=== PATIENT | male | born 1945 | race Caucasian/White ===

== ENCOUNTER 2017-12-20 22:01 | Emergency (ER) | payer OTHER ==
[~2017-12-20] VITALS: Ht 172.7 cm; Wt 78.0 kg
[~2017-12-20 22:01] MED LIST: ASPI81TA21 PO; GABA400C PO; HYDRTAB32 PO; HYT/2 PO; IPRA17AE2 INH; LEVO-366 PO; LISI-729 PO; LORA-741 PO; LSX20 PO; METO-551 PO; NITR0.4D TD; OXGN; SIMV40TA4 PO; SPIR25TA89 PO; SPRIN/30 INH; SYMIN160 INH; VNTHFA/IN INH
[2017-12-20 22:27] VITALS: TEMP 36.5; Ht 172.7 cm; Wt 78.0 kg
[2017-12-20] MEDS ORDERED: SODIUM CHLORIDE 0.9% 1000ML 1,000 ML IV STA (23:44)
[2017-12-20] MEDS ORDERED: ALBUT/IPRATROP 3MG/0.5MG NEB 3 ML VIAL INH STA (23:48)
[2017-12-20 23:57] LABS: BASO % 0.3 %; BASO ABS # 0.03 K/uL (0-0.2); EOS % 1.3 %; EOS ABS # 0.11 K/uL (0-0.5); HEMATOCRIT 32.4 % (42-52); HEMOGLOBIN 10.6 g/dL (14.0-18.0); IG# 0.01 K/uL (0.00-0.02); LYMPH % 15.5 %; LYMPH ABS # 1.36 K/uL (1.2-3.4); MEAN CELL VOLUME 90.8 fL (80-100); MEAN CORPUSCULAR HEMOGLOBIN 29.7 pg (25-34); MEAN CORPUSCULAR HGB CONC 32.7 g/dl (32-36); MEAN PLATELET VOLUME 9.6 fL (7.4-10.4); MONO % 7.4 %; MONO ABS # 0.65 K/uL (0.11-0.59); NEUT % 75.4 %; NEUT ABS # 6.62 K/uL (1.4-6.5); PLATELET COUNT 208 K/uL (130-400); RED CELL DISTRIBUTION WIDTH CV 14.3 % (11.5-14.5); RED CELL DISTRIBUTION WIDTH SD 47.5 fL (36.4-46.3); WHITE BLOOD COUNT 8.78 K/uL (4.8-10.8)
[2017-12-21 00:22] LABS: ALBUMIN 3.5 gm/dl (3.4-5.0); CALCIUM 8.8 mg/dl (8.5-10.1); CREATININE 0.78 mg/dl (0.60-1.40); POTASSIUM 3.4 mmol/L (3.5-5.1)
[2017-12-21] MEDS ORDERED: CANNABIS PO (00:36)
[2017-12-21] MEDS ORDERED: CYAN10005 PO (00:36)
[2017-12-21] MEDS ORDERED: VITA1TAB4 PO (00:36)
[2017-12-21] MEDS ORDERED: CHOL1000 PO (00:36)
[2017-12-21] MEDS ORDERED: LSN5 PO (00:36)
[2017-12-21] MEDS ORDERED: FNTTP50 TD (00:36)
[2017-12-21] MEDS ORDERED: SPIR25TA PO (00:36)
[2017-12-21] MEDS ORDERED: ATEN50TA8 PO (00:36)
[2017-12-21] MEDS ORDERED: CLOP1TAB15 PO (00:36)
[2017-12-21] MEDS ORDERED: BUME1TAB PO (00:36)
[2017-12-21 01:21] LABS: INFLUENZA A PCR Neg for Influ A (NEG); INFLUENZA B PCR Neg for Influ B (NEG)
--- NOTE | 2017-12-21 01:47 | EMERGENCY ROOM VISIT NOTE ---
History Report prepared by Randolph: Angy Gabriel Under the Supervision of: Dr. Judith Sullivan M.D. First contact with patient: 23:11 Chief Complaint: UNABLE TO VOID Stated Complaint: CHEST PAIN Nursing Triage Summary: Pt arrives ALS with complaints of unable to void. Reported that pt has had periods of confusion. Pt with moist productive cough yellow/brown sputum. Bladder scanned for >401 History of Present Illness The patient is a 72 year old male who presents to the Emergency Room with complaints of an episode of not being able to void starting this evening. Per nursing staff, the patient's bladder scan showed 450ml, but after the Corcoran was placed he is currently at 700. She states that she could not get it through at first because there was something right inside the meatus that was blocking it. The patient states that this has never happened before. The patient complains of intermittent diaphoresis, abdominal pain, and confusion. The patient's daughter reports that he thought people were in the house yesterday when no one was. She states that it seemed similar to when he was septic five years ago. The patient denies a fever, ever having a kidney stone, diabetes, and being a smoker. The daughter notes a history of COPD, diverticulitis, trigeminal myalgia , and being exposed to Agent [place] in [place]. The patient notes he is usually on 3 L at all times and uses a Fentanyl patch for his myalgia. Source of History: patient, family Onset: this evening Position: other (global) Quality: other (full) Timing: other (episode) Associated Symptoms: + diaphoresis, + abdominal pain, No fevers Note: The patient complains of confusion. Review of Systems See HPI for pertinent positives & negatives. A total of 10 systems reviewed and were otherwise negative. Past Medical & Surgical Medical Problems: (1) Anxiety (2) Asthma (3) Benign hypertension (4) Chronic obstructive lung disease (5) Diverticulitis (6) H/O agent [place] exposure (7) Hyperlipidemia (8) Myalgia (9) Osteoarthritis (10) peripheral neuropathy (11) Pneumonia (12) Sepsis Family History Patient reports no known family medical history. Social History Smoking Status: Former Smoker Marital Status: Housing Status: lives with family Occupation Status: retired Current/Historical Medications Scheduled Albuterol Hfa (Ventolin Hfa), 2 PUFFS INH 5 TIMES DAILY PRN Aspirin Enteric Coated (Ecotrin Or Generic), 81 MG PO DAILY Atenolol (Tenormin), 50 MG PO DAILY Budesonide/Formoterol Fumarate (Symbicort 160/4.5 Inhaler), 2 PUFFS INH BID Bumetanide (Bumex), 0.5 MG PO BID Cefdinir (Omnicef), 300 MG PO Q12H Cholecalciferol (Vitamin D3), 1 CAP PO DAILY Clopidogrel (Plavix), 75 MG PO DAILY Cyanocobalamin (Vitamin B-12), 1 TAB PO DAILY Fentanyl (Duragesic), 50 MCG TD [id number] Home O2 Therapy (Oxygen), 3 LITERS NA CONTINUOUS Lisinopril (Lisinopril), 5 MG PO QAM Metoprolol Tartrate (Lopressor), 50 MG PO QAM Metoprolol Tartrate (Lopressor), 25 MG PO QPM Simvastatin (Zocor), 20 MG PO QPM Spironolactone (Aldactone), 12.5 MG PO QAM Terazosin Hcl (Hytrin), 4 MG PO HS Tiotropium [place] (Spiriva Handihaler), 1 CAP INH DAILY Vitamin E (Vitamin E), 1 CAP PO DAILY [Cannabis Xl], 1 CAP PO DAILY Scheduled PRN Lorazepam (Ativan), 0.5 TABLET PO BID PRN PRN for ANXIETY/NERVES Allergies Coded Allergies: Amitriptyline (Verified Allergy, Unknown, "LETHAGIC", 12/21/17) Physical Exam Vital Signs Date Time Temp Pulse Resp B/P (MAP) Pulse Ox O2 Delivery O2 Flow Rate FiO2 12/21/17 03:55 78 18 138/79 97 12/21/17 02:21 77 18 167/75 97 Room Air 12/21/17 02:14 73 12/21/17 00:08 77 18 150/98 98 Room Air 12/20/17 22:37 Nasal Cannula 3.0 12/20/17 22:27 36.5 72 23 158/96 99 Nasal Cannula 3.0 12/20/17 22:16 67 Physical Exam Vital signs reviewed. General: Chronically ill-appearing, elderly, in no significant distress. On nasal canula at [address]. Cor[address] catheter in place with about 700 mls of dark clear urine. HEENT: No scleral icterus, PERRLA, neck supple. Atraumatic. Cardiovascular: Regular rate and rhythm, no extra sounds. Pulmonary: Coarse breath sounds bilaterally, right greater than left, normal work of breathing. Abdomen: Soft, mid-lower abdomen tenderness, no rebound, no guarding, nondistended, positive bowel sounds. Musculoskeletal: Atraumatic, no peripheral edema. Neurologic: Patient awake alert and oriented x 3, full strength in all 4 extremities. Cranial nerves 2 through 12 grossly intact. Skin: Warm, dry, no rash Medical Decision & Procedures ER Provider Diagnostic Interpretation: Radiology results as stated below per my review and radiologist interpretation: CT ABDOMEN & PELVIS Without Contrast: Moderate amount of thickening with mucous stasis and partial consolidation within the left lower lobe suggesting inflammatory or infectious process. Liver, gallbladder, spleen, pancreas, and adrenal glands are unremarkable. Non-obstructing calculus within the left kidney. Otherwise, kidneys and ureters are unremarkable. Urinary bladder is decompressed with Corcoran catheter present. Appendix is unremarkable. Noninflamed colonic diverticulitis. No acute osseous abnormality. Radiologist: Hilario Pacheco MD Study ready at 01:45 and initial results transmitted at 02:53. CHEST X-RAY: The results are interpreted by me. Chronic interstitial changes prominent right perihilum. Scarring in the right upper lung field. Interstitial prominence to the left lower lung field. Laboratory Results 12/20/17 23:45 Red Blood Count 3.57, Mean Corpuscular Volume 90.8, Mean Corpuscular Hemoglobin 29.7, Mean Corpuscular Hemoglobin Concent 32.7, Mean Platelet Volume 9.6, Neutrophils (%) (Auto) 75.4, Lymphocytes (%) (Auto) 15.5, Monocytes (%) (Auto) 7.4, Eosinophils (%) (Auto) 1.3, Basophils (%) (Auto) 0.3, Neutrophils # (Auto) 6.62, Lymphocytes # (Auto) 1.36, Monocytes # (Auto) 0.65, Eosinophils # (Auto) 0.11, Basophils # (Auto) 0.03 12/20/17 23:45 Test 12/20/17 22:03 12/20/17 23:30 12/20/17 23:45 12/20/17 23:48 Lab Scanned Report Laboratory Report/Additional Urine Color YELLOW Urine Appearance CLEAR (CLEAR) Urine pH 6.5 (4.5-7.5) Urine Specific [place] 1.016 (1.000-1.030) Urine Protein NEG (NEG) Urine Glucose (UA) NEG (NEG) Urine Ketones TRACE (NEG) Urine Occult Blood TRACE (NEG) Urine Nitrite NEG (NEG) Urine Bilirubin NEG (NEG) Urine Urobilinogen NEG (NEG) Urine Leukocyte Esterase NEG (NEG) Urine WBC (Auto) 1-5 /hpf (0-5) Urine RBC (Auto) 10-30 /hpf (0-4) Urine Hyaline Casts (Auto) 0 /lpf (0-5) Urine Epithelial Cells (Auto) 5-10 /lpf (0-5) Urine Bacteria (Auto) NEG (NEG) White Blood Count 8.78 K/uL (4.8-10.8) Red Blood Count 3.57 M/uL (4.7-6.1) Hemoglobin 10.6 g/dL (14.0-18.0) Hematocrit 32.4 % (42-52) Mean Corpuscular Volume 90.8 fL (80-100) Mean Corpuscular Hemoglobin 29.7 pg (25-34) Mean Corpuscular Hemoglobin Concent 32.7 g/dl (32-36) Platelet Count 208 K/uL (130-400) Mean Platelet Volume 9.6 fL (7.4-10.4) Neutrophils (%) (Auto) 75.4 % Lymphocytes (%) (Auto) 15.5 % Monocytes (%) (Auto) 7.4 % Eosinophils (%) (Auto) 1.3 % Basophils (%) (Auto) 0.3 % Neutrophils # (Auto) 6.62 K/uL (1.4-6.5) Lymphocytes # (Auto) 1.36 K/uL (1.2-3.4) Monocytes # (Auto) 0.65 K/uL (0.11-0.59) Eosinophils # (Auto) 0.11 K/uL (0-0.5) Basophils # (Auto) 0.03 K/uL (0-0.2) RDW Standard Deviation 47.5 fL (36.4-46.3) RDW Coefficient of Variation 14.3 % (11.5-14.5) Immature Granulocyte % (Auto) 0.1 % Immature Granulocyte # (Auto) 0.01 K/uL (0.00-0.02) Anion Gap 8.0 mmol/L (3-11) Est Creatinine Clear Calc Drug Dose 80.4 ml/min Estimated GFR () 103.1 Estimated GFR (Non- 88.9 BUN/Creatinine Ratio 7.8 (10-20) Calcium Level 8.8 mg/dl (8.5-10.1) Magnesium Level 1.9 mg/dl (1.8-2.4) Total Bilirubin 0.5 mg/dl (0.2-1) Direct Bilirubin 0.2 mg/dl (0-0.2) Aspartate Amino Transf (AST/SGOT) 19 U/L (15-37) Alanine Aminotransferase (ALT/SGPT) 15 U/L (12-78) Alkaline Phosphatase 40 U/L (45-117) Total Protein 7.0 gm/dl (6.4-8.2) Albumin 3.5 gm/dl (3.4-5.0) Thyroid Stimulating Hormone (TSH) 0.555 uIu/ml (0.300-4.500) Bedside Troponin I < 0.030 ng/ml (0-0.045) Test 12/20/17 23:57 12/21/17 00:10 Bedside Lactic Acid Venous 1.16 mmol/L (0.90-1.70) Influenza Type A (RT-PCR) Neg for Influ A (NEG) Influenza Type B (RT-PCR) Neg for Influ B (NEG) Laboratory results per my review. Medications Administered Medications (Trade) Dose Ordered Sig/Joselyn Route Start Time Stop Time Status Last Admin Dose Admin Sodium Chloride 1,000 ml @ 125 mls/hr Q8H STAT IV 12/20/17 23:44 12/21/17 04:28 DC 12/21/17 00:09 125 MLS/HR Albuterol/ Ipratropium (Duoneb) 3 ml NOW STAT INH 12/20/17 23:48 12/20/17 23:49 DC 12/21/17 00:09 3 ML Ceftriaxone Sodium (Rocephin Inj) 1 gm NOW STAT IV 12/21/17 03:07 12/21/17 03:08 DC 12/21/17 03:14 1 GM ECG Per My Interpretation Indication: chest pain Rate (beats per minute): 70 Rhythm: normal sinus Findings: RBBB, no acute ischemic change, left axis deviation, no ectopy Comparison ECG Date: 12/21/2014 Change: Patient's electrocardiogram interpreted by me. Left anterior vesicular block is no longer present. ED Course 2341: Past medical records reviewed. The patient was evaluated in room B12B. A complete history and physical examination was performed. 2344: Ordered NSS 1000 ml @ 125 mls/hr IV. 2348: Ordered Duoneb 3 ml INH. 0307: Ordered Rocephin Inj 1 gm IV. 0317: Upon reevaluation, the patient appeared to have improvement of his symptoms. I discussed findings with him. He verbalized agreement of the treatment plan. The patient was discharged home. Medical Decision DDX: Influenza, other viral illness, pneumonia, urinary tract infection, metabolic abnormality, medication effect, cellulitis, meningitis, intra-abdominal source. This patient was evaluated and appeared to be in no significant distress. IV access was obtained and laboratory work was drawn. Patient was placed on the monitoring tech and found to be in a normal sinus rhythm. He was hydrated with normal saline solution. A Corcoran catheter was placed due to the urinary retention. Presently 700 mL of a dark urine was obtained. The UA is indicative of blood only, no infection. Laboratory work reveals normal white blood cell count. Patient is mildly hyponatremic. CT scan of the abdomen and pelvis was performed without IV contrast for possible ureteral calculus. This study is negative for urinary calcifications however there is pulmonary infiltrate noted. Please see the reads above. Patient was given 1 g of IV ceftriaxone. His vital signs have remained stable. He will be discharged with a prescription for Omnicef 300 mg by mouth twice a day for 7 days. Patient will follow-up with his PCP this week for reevaluation as well as urology. He will return to the ER for worsening of symptoms or any medical concerns. Medication Reconcilliation Current Medication List: was personally reviewed by me Blood Pressure Screening Patient's blood pressure: Elevated blood pressure Blood pressure disposition: Elevated BP felt to be situational Impression Primary Impression: Urinary retention Additional Impression: Pneumonia Scribe Attestation The scribe's documentation has been prepared under my direction and personally reviewed by me in its entirety. I confirm that the note above accurately reflects all work, treatment, procedures, and medical decision making performed by me. Departure Information Dispostion Home / Self-Care Prescriptions Cefdinir (Omnicef) 300 Mg Cap 300 MG PO Q12H for 7 Days, #14 CAP Prov: Judith Sullivan M.D. 12/21/17 Referrals MICHELLE HAMM PA-C (PCP) Forms HOME CARE DOCUMENTATION FORM, IMPORTANT VISIT INFORMATION, WORK / SCHOOL INSTRUCTIONS Patient Instructions My [facility] Additional Instructions Diagnosis: Pneumonia, urinary retention Omnicef 300 mg twice daily for 7 days. Please drink plenty of clear fluids. Tylenol 650 mg every 6 hours as needed for pain or fever. Please leave Corcoran catheter in place and follow-up with urology as soon as possible. Return to the emergency department for worsening of symptoms or any medical concerns. Problem Qualifiers
[2017-12-21] MEDS ORDERED: CEFTRIAXONE SOD INJ 1 GM ADDVIAL IV STA (03:07)
[2017-12-21] MEDS ORDERED: CEFD1CAP14 PO ×2 (03:12→03:22)
[2017-12-21 03:55] VITALS: BP 138/79; PULSE 78; O2SAT 97
--- NOTE | 2017-12-21 07:08 | DIAGNOSTIC IMAGING REPORT ---
CHEST ONE VIEW PORTABLE CLINICAL HISTORY: 72 years-old Male presenting with fever, SOB. TECHNIQUE: Portable upright AP view of the chest was obtained. COMPARISON: 12/23/2012. FINDINGS: Atherosclerosis of aortic arch. Cardiac silhouette enlarged. Elevation of the left hemidiaphragm. Right lung is hyperinflated. Vague left basilar opacities, which appear new from prior. No large effusion or pneumothorax. Calcified granulomas suggested at the right mid to upper lung. Degenerative changes of the thoracic spine. IMPRESSION: 1. Interval development of vague left basilar opacity, which could represent a focal infiltrate/infection or atelectasis. 2. Hyperinflation of the lungs could suggest underlying emphysema. 3. Calcified granulomata. Electronically signed by: Yonatan Vo M.D. 12/21/2017 7:06 AM Dictated Date/Time: 12/21/2017 7:04 AM
--- NOTE | 2017-12-21 07:43 | DIAGNOSTIC IMAGING REPORT ---
ABD/PELVIS NO IV OR ORAL CONT CLINICAL HISTORY: 72 years-old Male presenting with urinary obstruction, hematuria. TECHNIQUE: Multidetector CT of the abdomen and pelvis was performed without the use of intravenous contrast. IV contrast: None. A dose lowering technique was used consistent with the principles of ALARA (as low as reasonably achievable). COMPARISON: 12/20/2012. CT DOSE (mGy.cm): The estimated cumulative dose is 425.49 mGy.cm. FINDINGS: Logistics Team Lead topogram: Unremarkable. Lung bases: Dependent consolidation in the posterior basal left lower lobe with associated bronchial wall thickening and scattered subsegmental bronchial debris. Minimal bandlike opacity in the right middle lobe, possibly atelectasis or scarring. Multichamber enlargement of the heart. Coronary artery calcification. Intraventricular blood pool is less dense and adjacent myocardium suggesting anemia. No pericardial or pleural effusion. Liver: Normal morphology. Density consistent with hepatic steatosis. Biliary: No gross biliary ductal dilatation allowing for noncontrast technique. Normal gallbladder. Pancreas: Mild parenchymal atrophy. Spleen: Normal noncontrast appearance. Adrenal glands: Mild nodular thickening of the left adrenal gland, nonspecific. Right adrenal gland normal. Kidneys and ureters: Mild perinephric fat stranding, nonspecific. Nonobstructing 3 mm calculus in the interpolar region of the left kidney. No hydronephrosis. Ureters normal. Bladder: Decompressed with a Corcoran catheter and containing few foci of gas related to catheterization. Mild circumferential bladder wall thickening suggested. Pelvic organs: Prostate enlargement likely secondary to benign prostatic hyperplasia. Bowel: Diverticulosis of the descending and sigmoid colon without pericolonic inflammatory change. Mild wall thickening of the proximal sigmoid colon could suggest chronic diverticular disease. The appendix is normal. No bowel obstruction. Small hilar hernia suggested. Peritoneal cavity: No free fluid or intraperitoneal gas. Lymph nodes: No gross lymphadenopathy allowing for noncontrast technique. Vasculature: Atherosclerosis of the abdominal aorta, which demonstrates slightly irregularity in the external contour with variable minimal ectasia. Abdominal wall: Small fat-containing umbilical hernia. Musculoskeletal: Degenerative changes of the spine. IMPRESSION: 1. Consolidation in the posterior basal left lower lobe with bronchial wall thickening and bronchial debris. This suggests aspiration, which may be acute or chronic. Resultant aspiration pneumonitis may be present. 2. Nonobstructing calculus in the left kidney. 3. Diverticulosis. 4. Bladder wall thickening related to decompression and likely chronic bladder outlet obstruction in the setting of prostatomegaly. Electronically signed by: Yonatan Vo M.D. 12/21/2017 7:42 AM Dictated Date/Time: 12/21/2017 6:56 AM
== END 2017-12-21 03:55 | disposition home or self-care (01) ==
LOC: EDBD 22:01 → C.EDB 22:03
DX: R33.9 Retention of urine, unspecified (principal); J18.9 Pneumonia, unspecified organism; I45.10 Unspecified right bundle-branch block; I10 Essential (primary) hypertension; E78.5 Hyperlipidemia, unspecified; M19.90 Unspecified osteoarthritis, unspecified site; F41.9 Anxiety disorder, unspecified; J44.9 Chronic obstructive pulmonary disease, unspecified; Z79.02 Long term (current) use of antithrombotics/antiplatelets; Z79.82 Long term (current) use of aspirin; Z79.899 Other long term (current) drug therapy; Z88.8 Allergy status to other drugs, medicaments and biological substances; Z86.19 Personal history of other infectious and parasitic diseases; Z87.01 Personal history of pneumonia (recurrent); Z87.891 Personal history of nicotine dependence